=== PATIENT | male | born 1995 | race Caucasian/White ===

== ENCOUNTER 2018-03-20 21:29 | Emergency (ER) | payer SELFPAY ==
[~2018-03-20] VITALS: Ht 167.6 cm; Wt 78.0 kg
[2018-03-20 21:53] VITALS: Ht 167.6 cm; Wt 78.0 kg
[2018-03-20 23:18] VITALS: BP 120/82
== END 2018-03-20 23:18 | disposition home or self-care (01) ==
LOC: ED 21:29
DX: F41.9 Anxiety disorder, unspecified (principal)